=== PATIENT | female | born 1990 | race Caucasian/White ===

== ENCOUNTER 2018-11-25 23:33 | Emergency (ER) | payer OTHER ==
[~2018-11-25 23:33] MED LIST: SERT100T12 PO
== END 2018-11-26 | disposition left against medical advice (07) ==
LOC: EMS 23:35
DX: R10.9 Unspecified abdominal pain (principal); R11.10 Vomiting, unspecified; Z53.21 Procedure and treatment not carried out due to patient leaving prior to being seen by health care provider